=== PATIENT | female | born 1980 | race Hispanic/Latino ===

== ENCOUNTER → 2018-05-07 | Outpatient (CLI) | payer BC ==
[~2018-05-07] MED LIST: IOPAMIDOL 370 MG/ML 200 ML INFUS..BTL INJ ONE; SODIUM CHLORIDE 0.9% 50ML 50 ML ONE
--- NOTE | 2018-05-07 14:30 | Diagnostic Imaging Report ---
EXAM: CT Abdomen and Pelvis WITH contrast INDICATION: Abdominal pain COMPARISON: None. TECHNIQUE: Abdomen and Pelvis was scanned utilizing a multidetector helical scanner after administration of IV contrast. Coronal and sagittal reformations were obtained. IV CONTRAST: 100 mL Isovue-370 COMPLICATIONS: None RADIATION DOSE: Total DLP:723 mGy*cm Estimated effective dose: (DLP x 0.015 x size factor) mSv CTDIvol has been reviewed. It is below the limits set by the Radiation Protocol Committee (RPC). Appropriate CT dose reduction techniques were utilized. FINDINGS: Abdomen: Lung Bases: Breast prostheses partially visualized. Solid Organs: Liver, adrenals, kidneys, spleen, and pancreas unremarkable. Upper GI Tract: No small bowel obstructive changes. Vascularity: No aortic aneurysm or significant atherosclerotic changes. Lymph Nodes: Scattered small mesenteric lymph nodes increased by number, but not by size. Other: None. Pelvis: Bladder: Unremarkable. Other: Hemorrhagic right ovarian cyst with small amount of free fluid present in the pelvis. Colon: Moderate colonic stool. Appendix not inflamed. Bones: No acute findings. IMPRESSION: 1. Hemorrhagic right adnexal pelvic cyst with small amount of pelvic free fluid. Signed by: Dr. Delvin Falk MD on 05/07/2018 2:27 PM
== END ==
LOC: CT 12:58
PROVIDERS: ATTEND Family Medicine
DX: R10.9 Unspecified abdominal pain (principal)
CPT/HCPCS: 74177; 81025; Q9967